=== PATIENT | male | born 1990 | race Caucasian/White ===

== ENCOUNTER 2018-03-14 17:07 | Emergency (ER) | payer MEDICAID ==
[2018-03-14] MEDS ORDERED: ISOVUE-370 76%-LOCM 1 ML ONE (18:32)
[2018-03-14] MEDS ORDERED: Ketorolac Tromethamine 30 MG/ML VIAL ONE (18:50)
[2018-03-14 18:53] LABS: #Eosinphils 0.2 thou/uL (0.0-0.7); #Monocytes 0.6 thou/uL (0.11-0.59); #Neutrophils 4.5 thou/uL (1.40-6.50); %Basophils 0.5 % (0.0-1.0); %Eosinophils 2.1 % (0.0-10.0); %Lymphocytes 36.7 % (21.0-51.0); %Monocytes 6.7 % (0.0-10.0); Hemoglobin 15.8 g/dL (14.0-18.0); Mean Corpuscular HGB CONC 35.2 g/dL (32.0-36.0); Mean Corpuscular Hemoglobin 32.7 pg (27.0-31.0); Mean Corpuscular Volume 92.9 fl (80.0-94.0); Mean Platelet Volume 8.3 fL (7.4-10.4); Platelet Count 161 thou/uL (130-400); RBC Distribution Width 11.2 % (11.5-14.5); Red Blood Cell (RBC) Count 4.82 mill/uL (4.70-6.10); White Blood Cell (WBC) Count 8.3 thou/uL (4.8-10.8)
[2018-03-14 19:13] LABS: ALT (SGPT) 25 U/L (8-55); AST (SGOT) 23 U/L (5-34); Albumin 4.5 g/dL (3.5-5.0); Alkaline Phosphatase 100 U/L (40-150); Anion Gap 12 mmol/L (10-20); BUN (Urea Nitrogen) 12 mg/dL (8.9-20.6); Bilirubin, Total 0.5 mg/dL (0.2-1.2); Calc. Creatinine Clearance 0 mL/min (70-130); Carbon Dioxide 27 mmol/L (22-29); Chloride 104 mmol/L (98-107); Estimated GFR-MDRD 89; Globulin 2.6 g/dL (2.4-3.5); Glucose 80 mg/dL (70-105); Potassium 4.3 mmol/L (3.5-5.1); Protein, Total 7.1 g/dL (6.0-8.3); Sodium 139 mmol/L (136-145)
--- NOTE | 2018-03-14 19:13 | CT ---
CT ABDOMEN AND PELVIS WITH CONTRAST: 03/14/18 Multiple axial tomograms obtained through the abdomen and pelvis with IV enhancement. INDICATIONS: Rectal pain. Abdominal pain. Blood from rectum. Lung bases clear. Liver, spleen and pancreas unremarkable. Stomach is distended with ingested material. Adrenal glands and kidneys appear unremarkable. Small bowel loops appear normal. Appendix is normal. Colon is filled with stool. There is an area of luminal narrowing and mild mural thickening at the rectosigmoid junction. Suggest evaluation of this with sigmoidoscopy. There is no perirectal inflammatory change seen. This could represent focal proct itis. IMPRESSION: Questionable area of luminal narrowing and mural thickening at the rectosigmoid junction. Recommend d irect visualization. POS: [facility]
== END 2018-03-14 19:46 | disposition home or self-care (01) ==
LOC: ERS 17:07
DX: K64.4 Residual hemorrhoidal skin tags (principal); E11.9 Type 2 diabetes mellitus without complications; F31.9 Bipolar disorder, unspecified; F17.210 Nicotine dependence, cigarettes, uncomplicated; Z71.6 Tobacco abuse counseling; Z79.84 Long term (current) use of oral hypoglycemic drugs; Z79.899 Other long term (current) drug therapy
CPT/HCPCS: 36415; 74177; 80053; 83605; 85025; 96374; 99406; J1885